=== PATIENT | male | born 1955 | race Caucasian/White ===

== ENCOUNTER 2024-01-24 08:46 | Emergency (ER) | payer OTHER, BC ==
[2024-01-24 08:56] VITALS: TEMP 97.6; BMI 33.5
[2024-01-24 10:11] LABS: BASO % 0.7 % (0-2.0); HEMATOCRIT 47.9 % (35.4-49); HEMOGLOBIN 16.1 GM/dL (11.7-16.9); LYMPH % 20.5 % (8-40); MCH 31.1 pg (25.7-33.7); MCHC 33.6 g/dl (32.0-35.9); MEAN CELL VOLUME 92.6 fl (80-96); MEAN PLT VOLUME 8.5 fl (7.5-11.1); NEUT % 67.8 % (42.8-82.8); PLATELET COUNT 235 10^3/uL (134-434); RBC 5.17 M/mm3 (4.00-5.60); WHITE BLOOD COUNT 8.4 K/mm3 (4.0-10.0)
[2024-01-24 10:25] LABS: POTASSIUM 4.8 mmol/L (3.5-5.1)
[2024-01-24 10:27] LABS: ALBUMIN 3.7 g/dl (3.4-5.0); CALCIUM 9.7 mg/dL (8.5-10.1)
[2024-01-24 10:30] LABS: CREATININE 1.1 mg/dL (0.55-1.3)
[2024-01-24 10:32] LABS: BILIRUBIN,TOTAL 1.2 mg/dL (0.2-1); TOT PROT 7.3 g/dl (6.4-8.2)
[2024-01-24 11:21] VITALS: BP 134/74; PULSE 74; RESP 20
== END 2024-01-24 11:21 | disposition home or self-care (01) ==
LOC: JER 08:46
DX: I49.9 Cardiac arrhythmia, unspecified (principal)
CPT/HCPCS: 36415; 80053; 84484; 85025; 93005; 93010; 99284-25

== ENCOUNTER 2024-03-06 04:34 | Day surgery (SDC) | payer OTHER, BC ==
[2024-03-04 15:37] VITALS: BMI 34.2
[2024-03-06 07:22] VITALS: RESP 18
[2024-03-06 08:48] VITALS: TEMP 97.7
[2024-03-06 09:25] VITALS: BP 95/62; PULSE 62
== END 2024-03-06 09:50 | disposition home or self-care (01) ==
LOC: JASU-ENDO 04:34
PROVIDERS: ATTEND Internal Medicine Gastroenterology
PROC: 0DBL8ZX Excision of Transverse Colon, Via Natural or Artificial Opening Endoscopic, Diagnostic (ICD-10-PCS; 2024-03-06)
PROC: 0DBK8ZX Excision of Ascending Colon, Via Natural or Artificial Opening Endoscopic, Diagnostic (ICD-10-PCS; principal; 2024-03-06 08:00)
DX: Z12.11 Encounter for screening for malignant neoplasm of colon (principal); D12.2 Benign neoplasm of ascending colon; D12.3 Benign neoplasm of transverse colon; Z86.010 Personal history of colon polyps
CPT/HCPCS: 88305-TC